=== PATIENT | female | born 1935 | race African-American/Black ===

== ENCOUNTER 2017-01-29 12:45 | Emergency (ER) | payer OTHER ==
[~2017-01-29] VITALS: Ht 154.9 cm; Wt 57.0 kg
[~2017-01-29 12:45] MED LIST: CARV6.2548 PO; MIRT15TA6 PO; PANT40TA4 PO; VALS160T2 PO; l-thyroxine PO
[2017-01-29] MEDS ORDERED: TRAMADOL 50MG TABLET PO ONE (13:30)
[2017-01-29] MEDS ORDERED: VISCOUS LIDOCAINE 2% 15 ML UDC PO STA (13:31)
[2017-01-29] MEDS ORDERED: MAGNESIUM/ALUMINUM HYDROXIDE/SIMETHICONE 30ML UDC PO STA ×2 (13:31)
[2017-01-29] MEDS ORDERED: FAMOTIDINE 20MG/2ML VIAL IV STA (13:31)
[2017-01-29 14:21] LABS: BASOPHILS % 0.3 % (0.0-2.0); HEMATOCRIT. 34.7 % (36.0-48.0); HEMOGLOBIN. 11.7 g/dL (12.0-16.0); LYMPHOCYTES % 33.1 % (20.0-50.0); MEAN CORPUSCULAR HEMOGLOBIN 31.3 pg (28.0-32.0); MEAN CORPUSCULAR HGB CONC 33.8 g/dL (31.0-37.0); MEAN CORPUSCULAR VOLUME 92.8 fL (81.0-99.0); MEAN PLATELET VOLUME 8.2 fl (7.4-10.4); MONOCYTES % 14.6 % (2.0-8.0); PLATELET 139 x1000/uL (130-400); RED BLOOD CELL COUNT 3.73 mill/uL (4.2-5.4); RED CELL DISTRIBUTION WIDTH 13.5 % (11.6-14.6); WHITE BLOOD COUNT 2.2 x1000/uL (4.5-11.0)
[2017-01-29 14:26] LABS: CLARITY URINE CLEAR (CLEAR); COLOR URINE YELLOW (YELLOW); GLUCOSE URINE NEGATIVE (NEGATIVE); KETONES URINE NEGATIVE (NEGATIVE); LEUKOCYTE ESTERASE URINE NEGATIVE (NEGATIVE); NITRITE URINE NEGATIVE (NEGATIVE); OCCULT BLOOD URINE NEGATIVE (NEGATIVE); PH URINE 7.5 (4.5-8.0); PROTEIN URINE NEGATIVE (NEGATIVE); SPECIFIC GRAVITY URINE 1.012 (1.005-1.030); UROBILINOGEN URINE 0.2 E.U./dL (0.2-1.0)
[2017-01-29 14:34] LABS: ALANINE AMINOTRANSFERASE 14 IU/L (13-61); ALBUMIN 3.8 g/dL (3.4-5.0); ANION GAP 11; CALCIUM 8.6 mg/dL (8.5-10.1); CARBON DIOXIDE 28 mEq/L (21-32); CHLORIDE 89 mEq/L (98-107); INDEX HEMOLYSI 3 (1-3); INDEX ICTERIC 1 (1-4); INDEX LIPEMIC 1 (1-3); LIPASE 152 IU/L (73-393); UREA NITROGEN BLOOD 9 mg/dL (7-21); eGFR > 60 mL/min (>60)
[2017-01-29 16:04] VITALS: BP 135/77
== END 2017-01-29 16:07 | disposition home or self-care (01) ==
LOC: ER 14:16
DX: M54.2 Cervicalgia (principal); K21.9 Gastro-esophageal reflux disease without esophagitis; E87.1 Hypo-osmolality and hyponatremia; K44.9 Diaphragmatic hernia without obstruction or gangrene; I10 Essential (primary) hypertension; R19.7 Diarrhea, unspecified; E11.9 Type 2 diabetes mellitus without complications; Z90.710 Acquired absence of both cervix and uterus; Z88.0 Allergy status to penicillin; Z88.2 Allergy status to sulfonamides; Z88.6 Allergy status to analgesic agent; Z88.8 Allergy status to other drugs, medicaments and biological substances
CPT/HCPCS: 36415; 71010; 72125; 80053; 81003; 83690; 85025; 93005; 96374; 99285; J3490

== ENCOUNTER 2017-03-18 12:33 | Emergency (ER) | payer OTHER ==
[~2017-03-18] VITALS: Ht 162.6 cm; Wt 59.0 kg
[~2017-03-18 12:33] MED LIST changes: -MIRT15TA6 PO; -VALS160T2 PO; -l-thyroxine PO
[2017-03-18] MEDS ORDERED: VISCOUS LIDOCAINE 2% 15 ML UDC PO STA (13:33)
[2017-03-18] MEDS ORDERED: MAGNESIUM/ALUMINUM HYDROXIDE/SIMETHICONE 30ML UDC PO STA (13:33)
[2017-03-18] MEDS ORDERED: FAMOTIDINE 20MG TABLET PO ONE (13:45)
[2017-03-18 16:27] VITALS: BP 134/51
== END 2017-03-18 16:28 | disposition home or self-care (01) ==
LOC: ER 13:10
DX: I10 Essential (primary) hypertension (principal); K21.9 Gastro-esophageal reflux disease without esophagitis; E11.9 Type 2 diabetes mellitus without complications; Z88.0 Allergy status to penicillin; Z88.2 Allergy status to sulfonamides; Z88.1 Allergy status to other antibiotic agents; Z88.8 Allergy status to other drugs, medicaments and biological substances; Z79.899 Other long term (current) drug therapy; Z90.710 Acquired absence of both cervix and uterus
CPT/HCPCS: 99283

== ENCOUNTER 2017-06-03 13:57 | Emergency (ER) | payer OTHER ==
[~2017-06-03] VITALS: Ht 157.5 cm; Wt 55.0 kg
[2017-06-03] MEDS ORDERED: SODIUM CHLORIDE 0.9% 1,000 ML IV ONE (15:19)
[2017-06-03] MEDS ORDERED: KETOROLAC 30MG/ML VIAL IV STA (15:19)
[2017-06-03 15:51] LABS: CLARITY URINE CLEAR (CLEAR); COLOR URINE YELLOW (YELLOW); GLUCOSE URINE NEGATIVE (NEGATIVE); KETONES URINE NEGATIVE (NEGATIVE); LEUKOCYTE ESTERASE URINE TRACE (NEGATIVE); NITRITE URINE NEGATIVE (NEGATIVE); OCCULT BLOOD URINE TRACE (NEGATIVE); PROTEIN URINE NEGATIVE (NEGATIVE); SPECIFIC GRAVITY URINE 1.004 (1.005-1.030); UROBILINOGEN URINE 0.2 E.U./dL (0.2-1.0)
[2017-06-03 16:21] LABS: BASOPHILS % 0.4 % (0.0-2.0); HEMATOCRIT. 34.3 % (36.0-48.0); HEMOGLOBIN. 11.7 g/dL (12.0-16.0); LYMPHOCYTES % 28.5 % (20.0-50.0); MEAN CORPUSCULAR VOLUME 93.9 fL (81.0-99.0); MEAN PLATELET VOLUME 9.4 fl (7.4-10.4); MONOCYTES % 10.3 % (2.0-8.0); NEUTROPHILS % 59.8 % (40.0-76.0); PLATELET 144 x1000/uL (130-400); RED BLOOD CELL COUNT 3.65 mill/uL (4.2-5.4); RED CELL DISTRIBUTION WIDTH 13.4 % (11.6-14.6)
[2017-06-03 16:23] LABS: CHLORIDE 100 mEq/L (98-107)
[2017-06-03 16:29] LABS: CARBON DIOXIDE 29 mEq/L (21-32)
[2017-06-03 16:37] LABS: INR 1.1; PROTHROMBIN TIME 11.2 sec
[2017-06-03 17:16] VITALS: BP 152/76
== END 2017-06-03 18:17 | disposition home or self-care (01) ==
LOC: ER 16:43
DX: N30.00 Acute cystitis without hematuria (principal); E11.9 Type 2 diabetes mellitus without complications; I10 Essential (primary) hypertension; M19.90 Unspecified osteoarthritis, unspecified site; K21.9 Gastro-esophageal reflux disease without esophagitis; Z88.0 Allergy status to penicillin; Z88.2 Allergy status to sulfonamides; Z88.8 Allergy status to other drugs, medicaments and biological substances
CPT/HCPCS: 36415; 74176; 80053; 81001; 83690; 85025; 85610; 96360; 99285; J7030; J1885

== ENCOUNTER 2017-06-12 15:00 | Observation (INO) | payer OTHER ==
[~2017-06-12] VITALS: Ht 157.5 cm; Wt 57.2 kg
[2017-06-12 18:07] LABS: BASOPHILS % 0.1 % (0.0-2.0); EOSINOPHILS % 0.9 % (0.0-5.0); HEMATOCRIT. 32.2 % (36.0-48.0); HEMOGLOBIN. 10.7 g/dL (12.0-16.0); LYMPHOCYTES % 26.1 % (20.0-50.0); MEAN CORPUSCULAR HEMOGLOBIN 31.4 pg (28.0-32.0); MEAN CORPUSCULAR VOLUME 94.2 fL (81.0-99.0); MEAN PLATELET VOLUME 9.4 fl (7.4-10.4); MONOCYTES % 13.7 % (2.0-8.0); NEUTROPHILS % 59.2 % (40.0-76.0); PLATELET 127 x1000/uL (130-400); RED BLOOD CELL COUNT 3.42 mill/uL (4.2-5.4); RED CELL DISTRIBUTION WIDTH 13.6 % (11.6-14.6)
[2017-06-12 18:16] LABS: INR 1.1; PROTHROMBIN TIME 11.9 sec
[2017-06-12 18:18] LABS: CARBON DIOXIDE 27 mEq/L (21-32); CHLORIDE 98 mEq/L (98-107)
[2017-06-12 18:21] LABS: TROPONIN I < 0.02 ng/mL (0.00-0.04)
[2017-06-12 21:46] VITALS: BP 120/91
[2017-06-12] MEDS ORDERED: LEVO25TA7 PO (23:13)
[2017-06-12] MEDS ORDERED: CARB1DRO6 OP (23:13)
[2017-06-12] MEDS ORDERED: MIRT15TA6 PO (23:13)
[2017-06-12] MEDS ORDERED: VALS160T2 PO (23:13)
[2017-06-12] MEDS ORDERED: CYAN100069 PO (23:13)
[2017-06-12] MEDS ORDERED: PANT40TA4 PO (23:13)
[2017-06-12] MEDS ORDERED: SODI45SP35 NS (23:13)
[2017-06-12] MEDS ORDERED: CARV6.2548 PO (23:13)
[2017-06-12] MEDS ORDERED: TEMAZEPAM 15MG CAPSULE PO PRN (23:15)
[2017-06-12] MEDS ORDERED: ALPRAZOLAM 0.25 MG TABLET PO PRN (23:15)
[2017-06-12] MEDS ORDERED: DEXTROSE 50% WATER 50ML SYRINGE IV PRN (23:15)
[2017-06-12] MEDS ORDERED: ACETAMINOPHEN 325MG TABLET PO PRN (23:15)
[2017-06-13 04:00] VITALS: BP 119/55
[2017-06-13 07:04] LABS: CHLORIDE 102 mEq/L (98-107)
[2017-06-13] MEDS: BLOOD SUGAR DIAGNOSTIC STRIP TEST SCH ×2 (07:08→12:40)
[2017-06-13] MEDS ORDERED: LEVOTHYROXINE SODIUM 25MCG TABLET PO SCH (07:10)
[2017-06-13 07:25] LABS: CARBON DIOXIDE 26 mEq/L (21-32); CREATINE KINASE 51 IU/L (26-192); CREATINE KINASE MB FRACTION 0.6 ng/mL (0.5-3.6); HDL CHOLESTEROL 30 mg/dL (40-59); LDL CHOLESTEROL 102 mg/dL (5-100); T4 FREE 1.21 ng/dL (0.76-1.46); TROPONIN I < 0.02 ng/mL (0.00-0.04)
[2017-06-13 08:00] VITALS: BP 104/52
[2017-06-13 08:22] LABS: BASOPHILS % 0.5 % (0.0-2.0); EOSINOPHILS % 1.3 % (0.0-5.0); HEMATOCRIT. 31.6 % (36.0-48.0); HEMOGLOBIN. 10.6 g/dL (12.0-16.0); LYMPHOCYTES % 25.6 % (20.0-50.0); MEAN CORPUSCULAR HEMOGLOBIN 31.2 pg (28.0-32.0); MEAN CORPUSCULAR VOLUME 93.1 fL (81.0-99.0); MEAN PLATELET VOLUME 9.7 fl (7.4-10.4); MONOCYTES % 13.8 % (2.0-8.0); NEUTROPHILS % 58.8 % (40.0-76.0); PLATELET 113 x1000/uL (130-400); RED BLOOD CELL COUNT 3.39 mill/uL (4.2-5.4)
[2017-06-13] MEDS ORDERED: ASPIRIN 81MG EC TABLET PO SCH (09:00)
[2017-06-13] MEDS ORDERED: PANTOPRAZOLE 40MG DR TABLET PO SCH (09:00)
[2017-06-13] MEDS ORDERED: CARVEDILOL 6.25 MG TABLET PO SCH (09:00)
[2017-06-13] MEDS ORDERED: CYANOCOBALAMIN 1000MCG TABLET PO SCH (09:00)
[2017-06-13] MEDS ORDERED: CYANOCOBALAMIN 1000 MCG PO SCH (09:00)
[2017-06-13] MEDS ORDERED: LOSARTAN POTASSIUM 50 MG TABLET PO SCH (09:00)
[2017-06-13 12:00] VITALS: BP 110/72
[2017-06-13] MEDS ORDERED: CYANOCOBALAMIN 1000MCG/ML VIAL IM SCH (12:45)
[2017-06-13 14:17] VITALS: BP 110/72
[2017-06-13] MEDS ORDERED: MIRTAZAPINE 15MG TABLET PO SCH (17:00)
== END 2017-06-13 16:07 | disposition home or self-care (01) ==
LOC: ER 16:01 → 8WST 18:59 → INTOOBSV 18:59 → EDBEDREQ 19:01 → ENRESERV 19:33
PROVIDERS: ADMIT Ophthalmology; ATTEND Ophthalmology
DX: R55 Syncope and collapse (principal); M47.812 Spondylosis without myelopathy or radiculopathy, cervical region; E53.8 Deficiency of other specified B group vitamins; D61.818 Other pancytopenia; E03.9 Hypothyroidism, unspecified; K21.9 Gastro-esophageal reflux disease without esophagitis; I10 Essential (primary) hypertension; E11.9 Type 2 diabetes mellitus without complications; G89.29 Other chronic pain; M19.90 Unspecified osteoarthritis, unspecified site; Z90.710 Acquired absence of both cervix and uterus
CPT/HCPCS: 36415; 70450; 71010; 80048; 80053; 80061; 82550; 82553; 82962; 83036; 83735; 84439; 84443; 84484; 85025; 85610; 85730; 93005; 96372; 99285; G0378; J3420

== ENCOUNTER 2017-09-03 23:00 | Emergency (ER) | payer OTHER ==
[~2017-09-03] VITALS: Ht 154.9 cm; Wt 56.7 kg
[~2017-09-03 23:00] MED LIST changes: +CARB1DRO6 OP; +CYAN100069 PO; +LEVO25TA7 PO; +MIRT15TA6 PO; +SODI45SP35 NS; +VALS160T2 PO
[2017-09-03] MEDS ORDERED: FAMOTIDINE 20MG/2ML VIAL IV STA (23:40)
[2017-09-03] MEDS ORDERED: VISCOUS LIDOCAINE 2% 15 ML UDC PO STA (23:40)
[2017-09-03] MEDS ORDERED: MORPHINE SULFATE 4 MG/ML CPJ (NOT FOR IM USE) IV STA (23:40)
[2017-09-03] MEDS ORDERED: MAGNESIUM/ALUMINUM HYDROXIDE/SIMETHICONE 30ML UDC PO STA (23:40)
[2017-09-03] MEDS ORDERED: ONDANSETRON HCL 4MG/2ML VIAL IV STA (23:40)
[2017-09-03] MEDS ORDERED: SODIUM CHLORIDE 0.9% 1,000 ML IV ONE (23:40)
[2017-09-04 00:06] LABS: CLARITY URINE CLEAR (CLEAR); COLOR URINE YELLOW (YELLOW); GLUCOSE URINE NEGATIVE (NEGATIVE); KETONES URINE NEGATIVE (NEGATIVE); LEUKOCYTE ESTERASE URINE 1+ (NEGATIVE); NITRITE URINE NEGATIVE (NEGATIVE); OCCULT BLOOD URINE NEGATIVE (NEGATIVE); PROTEIN URINE NEGATIVE (NEGATIVE); SPECIFIC GRAVITY URINE 1.007 (1.005-1.030); UROBILINOGEN URINE 0.2 E.U./dL (0.2-1.0)
[2017-09-04] MEDS ORDERED: MORPHINE SULFATE 10 MG/ML CPJ IV NR (00:15)
[2017-09-04 00:19] LABS: BASOPHILS % 0.3 % (0.0-2.0); EOSINOPHILS % 1.6 % (0.0-5.0); HEMATOCRIT. 34.3 % (36.0-48.0); HEMOGLOBIN. 11.8 g/dL (12.0-16.0); INR 1.1; LYMPHOCYTES % 27.9 % (20.0-50.0); MEAN CORPUSCULAR HEMOGLOBIN 31.8 pg (28.0-32.0); MEAN CORPUSCULAR VOLUME 92.7 fL (81.0-99.0); MEAN PLATELET VOLUME 8.8 fl (7.4-10.4); MONOCYTES % 11.5 % (2.0-8.0); NEUTROPHILS % 58.7 % (40.0-76.0); PLATELET 136 x1000/uL (130-400); PROTHROMBIN TIME 11.9 sec (9.4-11.6); RED CELL DISTRIBUTION WIDTH 14.2 % (11.6-14.6)
[2017-09-04 00:27] LABS: CARBON DIOXIDE 29 mEq/L (21-32); CHLORIDE 97 mEq/L (98-107); ETHANOL BLOOD < 10 mg/dL; TROPONIN I < 0.02 ng/mL (0.00-0.04)
[2017-09-04 00:33] LABS: *AMPHETAMINES SCREEN URINE NEGATIVE (NEGATIVE); *BARBITURATES SCREEN URINE NEGATIVE (NEGATIVE); *BENZODIAZEPINES SCREEN URINE NEGATIVE (NEGATIVE); *COCAINE SCREEN URINE NEGATIVE (NEGATIVE); CANNABINOID URINE SCREEN NEGATIVE (NEGATIVE); METHADONE URINE SCREEN NEGATIVE (NEGATIVE); OPIATES URINE SCREEN NEGATIVE (NEGATIVE); PHENCYCLIDINE URINE SCREEN NEGATIVE (NEGATIVE)
[2017-09-04] MEDS ORDERED: NITROFURANTOIN 100MG M/M CAPSULE PO ONE (02:15)
[2017-09-04 02:30] VITALS: BP 165/85
== END 2017-09-04 03:09 | disposition home or self-care (01) ==
LOC: ER 23:00
DX: K21.9 Gastro-esophageal reflux disease without esophagitis (principal); N39.0 Urinary tract infection, site not specified; I10 Essential (primary) hypertension; M19.90 Unspecified osteoarthritis, unspecified site; Z88.3 Allergy status to other anti-infective agents; Z88.0 Allergy status to penicillin; Z88.2 Allergy status to sulfonamides; Z88.8 Allergy status to other drugs, medicaments and biological substances; Z90.710 Acquired absence of both cervix and uterus
CPT/HCPCS: 36415; 71010; 74176; 80053; 80305; 81001; 83690; 83880; 84484; 85025; 85610; 93005; 96361; 96374; 99285; G0482; J3490; J7030; 81003; J2405

== ENCOUNTER 2017-10-01 09:50 | Emergency (ER) | payer OTHER ==
[~2017-10-01] VITALS: Ht 152.4 cm; Wt 57.0 kg
[2017-10-01] MEDS ORDERED: FAMOTIDINE 20MG/2ML VIAL IV ONE (12:00)
[2017-10-01 12:29] LABS: BASOPHILS % 0.4 % (0.0-2.0); EOSINOPHILS % 0.7 % (0.0-5.0); HEMATOCRIT. 36.8 % (36.0-48.0); HEMOGLOBIN. 12.4 g/dL (12.0-16.0); LYMPHOCYTES % 28.7 % (20.0-50.0); MEAN CORPUSCULAR HEMOGLOBIN 31.9 pg (28.0-32.0); MEAN CORPUSCULAR VOLUME 94.5 fL (81.0-99.0); MEAN PLATELET VOLUME 8.4 fl (7.4-10.4); MONOCYTES % 13.3 % (2.0-8.0); NEUTROPHILS % 56.9 % (40.0-76.0); PLATELET 130 x1000/uL (130-400); RED BLOOD CELL COUNT 3.89 mill/uL (4.2-5.4); RED CELL DISTRIBUTION WIDTH 13.7 % (11.6-14.6)
[2017-10-01 12:44] LABS: INR 1.1; PROTHROMBIN TIME 11.4 sec (9.4-11.6)
[2017-10-01 12:45] LABS: CARBON DIOXIDE 30 mEq/L (21-32); CHLORIDE 99 mEq/L (98-107); TROPONIN I < 0.02 ng/mL (0.00-0.04)
[2017-10-01] MEDS ORDERED: FAMOTIDINE 20MG TABLET PO ONE (12:45)
[2017-10-01 15:41] VITALS: BP 126/72
== END 2017-10-01 15:41 | disposition home or self-care (01) ==
LOC: ER 10:17
DX: K21.9 Gastro-esophageal reflux disease without esophagitis (principal); R00.2 Palpitations; Z90.710 Acquired absence of both cervix and uterus; Z88.0 Allergy status to penicillin; Z88.2 Allergy status to sulfonamides; Z88.8 Allergy status to other drugs, medicaments and biological substances
CPT/HCPCS: 36415; 71010; 80053; 83880; 84484; 85025; 85610; 93005; 99285

== ENCOUNTER 2017-10-23 10:34 | Emergency (ER) | payer OTHER ==
[~2017-10-23] VITALS: Ht 154.9 cm; Wt 59.0 kg
[2017-10-23] MEDS ORDERED: KETOROLAC 30MG/ML VIAL IV STA (12:54)
[2017-10-23 13:25] LABS: MEAN CORPUSCULAR HEMOGLOBIN 32.4 pg (28.0-32.0); MEAN CORPUSCULAR VOLUME 93.9 fL (81.0-99.0); MEAN PLATELET VOLUME 7.8 fl (7.4-10.4); PLATELET 145 x1000/uL (130-400); RED BLOOD CELL COUNT 3.41 mill/uL (4.2-5.4); RED CELL DISTRIBUTION WIDTH 13.9 % (11.6-14.6)
[2017-10-23 13:31] LABS: INR 1.1; PROTHROMBIN TIME 11.6 sec (9.4-11.6)
[2017-10-23 13:32] LABS: CHLORIDE 98 mEq/L (98-107)
[2017-10-23 13:38] LABS: CARBON DIOXIDE 26 mEq/L (21-32)
[2017-10-23 14:22] LABS: PLATELET ESTIMATE NORMAL
[2017-10-23 14:26] LABS: CLARITY URINE CLEAR (CLEAR); COLOR URINE YELLOW (YELLOW); KETONES URINE NEGATIVE (NEGATIVE); LEUKOCYTE ESTERASE URINE NEGATIVE (NEGATIVE); NITRITE URINE NEGATIVE (NEGATIVE); OCCULT BLOOD URINE NEGATIVE (NEGATIVE); PH URINE 7.5 (4.5-8.0); PROTEIN URINE NEGATIVE (NEGATIVE); SPECIFIC GRAVITY URINE 1.008 (1.005-1.030); UROBILINOGEN URINE 0.2 E.U./dL (0.2-1.0)
[2017-10-23 15:25] VITALS: BP 141/80
[2017-10-25] MEDS ORDERED: LEVO25TA7 PO (17:27)
== END 2017-10-23 16:04 | disposition home or self-care (01) ==
LOC: ER 11:47
DX: R10.84 Generalized abdominal pain (principal); K57.30 Diverticulosis of large intestine without perforation or abscess without bleeding; K21.9 Gastro-esophageal reflux disease without esophagitis; E87.1 Hypo-osmolality and hyponatremia; I10 Essential (primary) hypertension; E11.9 Type 2 diabetes mellitus without complications; Z88.3 Allergy status to other anti-infective agents; Z88.0 Allergy status to penicillin; Z88.2 Allergy status to sulfonamides
CPT/HCPCS: 36415; 74176; 80053; 81003; 83690; 85025; 85610; 96374; 99285; J1885

== ENCOUNTER 2023-03-19 04:37 | Inpatient (IN) | payer OTHER, MEDICAID ==
[~2023-03-19] VITALS: Ht 309.9 cm; Wt 71.7 kg
[~2023-03-19 04:37] MED LIST changes: +MIRT-89 PO; -MIRT15TA6 PO; -PANT40TA4 PO; +PANT40TA51 PO
[2023-03-19 08:17] LABS: CLARITY URINE CLEAR (CLEAR); COLOR URINE YELLOW (YELLOW); KETONES URINE NEGATIVE (NEGATIVE); LEUKOCYTE ESTERASE URINE 2+ (NEGATIVE); NITRITE URINE NEGATIVE (NEGATIVE); OCCULT BLOOD URINE NEGATIVE (NEGATIVE); PROTEIN URINE NEGATIVE (NEGATIVE); UROBILINOGEN URINE 0.2 E.U./dL (0.2-1.0)
[2023-03-19] MEDS ORDERED: CEFEPIME HCL 1000MG/VIAL INJ IV ONE (09:00)
[2023-03-19] MEDS ORDERED: DOCUSATE SODIUM 100MG CAPSULE PO PRN (09:15)
[2023-03-19] MEDS ORDERED: ONDANSETRON HCL 4MG/2ML INJ IV PRN (09:15)
[2023-03-19] MEDS ORDERED: LOSARTAN POTASSIUM 50 MG TABLET PO SCH (09:15)
[2023-03-19] MEDS ORDERED: MAGNESIUM/ALUMINUM HYDROXIDE/SIMETHICONE 30ML UDC PO PRN (09:15)
[2023-03-19] MEDS ORDERED: PANTOPRAZOLE 40MG DR TABLET PO SCH (09:15)
[2023-03-19] MEDS ORDERED: CEFTAZIDIME PENTAHYDRATE 1 G in DEXTROSE 5% WATER 50 ML IV SCH (09:15)
[2023-03-19] MEDS ORDERED: LEVOTHYROXINE SODIUM 25MCG TABLET PO SCH (09:15)
[2023-03-19] MEDS ORDERED: ACETAMINOPHEN 325MG TABLET PO PRN (09:15)
[2023-03-19] MEDS ORDERED: CEFTAZIDIME PENTAHYDRATE 1 G in DEXTROSE 5% WATER 50 ML IV NR (09:30)
[2023-03-19] MEDS ORDERED: CEFEPIME 1,000 MG in DEXTROSE 5% WATER 50 ML IV NR (09:30)
[2023-03-19] MEDS ORDERED: ENOXAPARIN 40MG/0.4ML SYR SUBCUT NR (09:45)
[2023-03-19 10:48] LABS: CHLORIDE 104 mEq/L (98-107)
[2023-03-19 10:55] LABS: BASOPHILS % 0.3 % (0.0-2.0); EOSINOPHILS % 0.3 % (0.0-5.0); HEMATOCRIT. 37.1 % (36.0-48.0); HEMOGLOBIN. 12.6 g/dL (12.0-16.0); LYMPHOCYTES % 14.6 % (20.0-50.0); MEAN CORPUSCULAR HEMOGLOBIN 32.3 pg (28.0-32.0); MEAN CORPUSCULAR VOLUME 95.2 fL (81.0-99.0); MONOCYTES % 7.6 % (2.0-8.0); NEUTROPHILS % 77.2 % (40.0-76.0); RED CELL DISTRIBUTION WIDTH 14.4 % (11.6-14.6)
[2023-03-19 11:08] LABS: HDL CHOLESTEROL 35 mg/dL (40-59); LDL CHOLESTEROL 84 mg/dL (5-100)
[2023-03-19 11:27] LABS: VITAMIN B12 SERUM 200 pg/mL (211-911)
[2023-03-19 11:51] LABS: MEAN PLATELET VOLUME 9.2 fl (7.4-10.4)
[2023-03-19 11:52] LABS: PLATELET 193 x1000/uL (130-400)
[2023-03-19] MEDS ORDERED: TOPUD PO (12:16)
[2023-03-19] MEDS ORDERED: CEFTAZIDIME 500MG in DEXTROSE 5% WATER 50ML IV SCH ×2 (14:00→18:00)
[2023-03-19 15:00] VITALS: BP 115/67
[2023-03-19 15:36] VITALS: BP 98/63
[2023-03-19] MEDS ORDERED: MIRTAZAPINE 15MG TABLET PO SCH ×2 (17:00→21:00)
[2023-03-19] MEDS: CARVEDILOL 6.25 MG TABLET PO SCH ×2 (17:00→19:02)
[2023-03-19] MEDS ORDERED: DOCUSATE SODIUM 250MG CAPSULE PO SCH (17:30)
[2023-03-19] MEDS ORDERED: HYDROCODONE/ACETAMINOPHEN 5/325MG TABLET PO PRN (18:30)
[2023-03-19] MEDS ORDERED: LORAZEPAM 0.5MG TABLET PO PRN (18:30)
[2023-03-19] MEDS ORDERED: ATORVASTATIN CALCIUM 20MG TABLET PO SCH (21:00)
[2023-03-20] MEDS ORDERED: LOSARTAN POTASSIUM 100 MG TABLET PO SCH (09:00)
[2023-03-20] MEDS ORDERED: AMLODIPINE 2.5MG TABLET PO SCH (09:00)
[2023-03-20] MEDS ORDERED: CYANOCOBALAMIN/FA/PYRIDOXINE TABLET PO SCH (09:00)
[2023-03-20] MEDS ORDERED: ENOXAPARIN 40MG/0.4ML SYR SUBCUT SCH (12:00)
== END 2023-03-19 19:46 | disposition short-term general hospital (02) | DRG 689 ==
LOC: ER 04:37 → 7WST 09:02 → EDBEDREQTM 09:05 → EDBEDREQ 09:05
PROVIDERS: ADMIT Internal Medicine Pulmonary Disease; ATTEND Internal Medicine Pulmonary Disease
DX: N39.0 Urinary tract infection, site not specified (principal); G93.41 Metabolic encephalopathy; E03.9 Hypothyroidism, unspecified; E11.9 Type 2 diabetes mellitus without complications; E53.8 Deficiency of other specified B group vitamins; E78.5 Hyperlipidemia, unspecified; F03.A0 Unspecified dementia, mild, without behavioral disturbance, psychotic disturbance, mood disturbance, and anxiety; K21.9 Gastro-esophageal reflux disease without esophagitis; M19.90 Unspecified osteoarthritis, unspecified site; K59.09 Other constipation; R55 Syncope and collapse; I10 Essential (primary) hypertension; Z63.4 Disappearance and death of family member; Z88.9 Allergy status to unspecified drugs, medicaments and biological substances; Z90.710 Acquired absence of both cervix and uterus; Z88.0 Allergy status to penicillin; Z88.2 Allergy status to sulfonamides; Z88.8 Allergy status to other drugs, medicaments and biological substances
CPT/HCPCS: 36415; 71045; 74176; 80053; 80061; 81003; 82607; 83880; 84443; 84484; 85025; 99285; J0692; J0713; J1650; J7060

== ENCOUNTER 2023-09-10 23:30 | Emergency (ER) | payer OTHER, MEDICAID ==
[~2023-09-10] VITALS: Ht 167.6 cm; Wt 78.0 kg
[~2023-09-10 23:30] MED LIST changes: -CARV6.2548 PO; -CYAN100069 PO; -MIRT-89 PO; -PANT40TA51 PO; +TOPUD PO; -VALS160T2 PO
[2023-09-10 23:44] VITALS: O2SAT 97
[2023-09-11] MEDS ORDERED: SODIUM CHLORIDE 0.9% 1,000 ML IV ONE
[2023-09-11 00:22] LABS: HEMATOCRIT. 37.1 % (36.0-48.0); HEMOGLOBIN. 12.2 g/dL (12.0-16.0); MEAN CORPUSCULAR HEMOGLOBIN 32.2 pg (28.0-32.0); MEAN CORPUSCULAR HGB CONC 32.9 g/dL (31.0-37.0); MEAN CORPUSCULAR VOLUME 97.8 fL (81.0-99.0); MEAN PLATELET VOLUME 8.3 fl (7.4-10.4); PLATELET 196 x1000/uL (130-400); RED CELL DISTRIBUTION WIDTH 14.4 % (11.6-14.6); WHITE BLOOD COUNT 2.9 x1000/uL (4.5-11.0)
[2023-09-11 00:30] LABS: CHLORIDE 102 mEq/L (98-107); INDEX HEMOLYSI 1 (1-3); INDEX ICTERIC 1 (1-4); INDEX LIPEMIC 1 (1-3); POTASSIUM 3.6 mEq/L (3.5-5.1); SODIUM 136 mEq/L (136-145)
[2023-09-11 00:40] LABS: ALANINE AMINOTRANSFERASE 11 IU/L (13-61); ALBUMIN 3.7 g/dL (3.4-5.0); ASPARTATE AMINOTRANSFERASE 20 IU/L (15-37); BILIRUBIN TOTAL 0.3 mg/dL (0.1-1.0); CALCIUM 8.6 mg/dL (8.5-10.1); CARBON DIOXIDE 27 mEq/L (21-32); CREATININE 0.6 mg/dL (0.6-1.3); GLUCOSE 151 mg/dL (70-105); NT PRO B-TYPE NATRIURETIC PEP 74 pg/mL (5-125); PROTEIN TOTAL 8.6 g/dL (6.0-8.3); TROPONIN I HIGH SENSITIVITY 7 ng/L (<54); UREA NITROGEN BLOOD 5 mg/dL (7-21)
[2023-09-11 00:49] LABS: LACTIC ACID 2.5 mmol/L (0.4-2.0)
[2023-09-11 00:53] LABS: DIFFERENTIAL COMMENT 1
[2023-09-11 02:21] LABS: CLARITY URINE CLEAR (CLEAR); COLOR URINE YELLOW (YELLOW); GLUCOSE URINE NEGATIVE (NEGATIVE); KETONES URINE NEGATIVE (NEGATIVE); LEUKOCYTE ESTERASE URINE NEGATIVE (NEGATIVE); NITRITE URINE NEGATIVE (NEGATIVE); OCCULT BLOOD URINE NEGATIVE (NEGATIVE); PROTEIN URINE NEGATIVE (NEGATIVE); SPECIFIC GRAVITY URINE 1.005 (1.005-1.030); UROBILINOGEN URINE 0.2 E.U./dL (0.2-1.0)
[2023-09-11 02:35] LABS: TROPONIN I HIGH SENSITIVITY 10 ng/L (<54)
[2023-09-11 05:47] LABS: PLATELET ESTIMATE NORMAL
[2023-09-11 11:06] VITALS: BP 146/68; PULSE 56; RESP 12; TEMP 98.5
== END 2023-09-11 11:10 | disposition short-term general hospital (02) ==
LOC: ER 23:30
DX: R41.82 Altered mental status, unspecified (principal); F03.90 Unspecified dementia, unspecified severity, without behavioral disturbance, psychotic disturbance, mood disturbance, and anxiety; F41.9 Anxiety disorder, unspecified; Z88.0 Allergy status to penicillin; Z88.2 Allergy status to sulfonamides; Z88.8 Allergy status to other drugs, medicaments and biological substances
CPT/HCPCS: 36415; 71045; 80053; 81003; 83605; 83880; 84484; 85025; 99285; J7030; A4315